=== PATIENT | female | born 1965 | race Caucasian/White ===

== ENCOUNTER → 2016-12-19 | Day surgery (SDC) | payer MEDICARE, MEDICAID ==
[~2016-12-19] VITALS: Ht 147.3 cm; Wt 39.5 kg
[~2016-12-19] MED LIST: BANZEL40 MG/1 ML PO; CELONTIN300 MG PO; CLARITIN10 MG PO; LEVOTHROID (S100 MCG PO; PEPCID20 MG PO; [UNRECOGNIZED DRUG - OTHER] PO
--- NOTE | ~2016-12-19 | OR ---
PATIENT'S NAME: ROMARIO MARTI [facility] AGE: 51 Y [address] ROOM: [place] [address] LOCATION: [facility] [place] DATE: 12/19/2016 OR/Procedure Report DISCHARGE DATE: FAMILY PHYSICIAN: CONRADO ORDOÑEZ PA-C ATTENDING PHYSICIAN: Fortino Corral V SURGEON: Fortino Corral MD SALES AUDIT CLERK: DATE OF PROCEDURE: 12/19/2016 PREOPERATIVE DIAGNOSIS: Displaced nasal fracture with a left-sided nasal obstruction. POSTOPERATIVE DIAGNOSIS: Displaced nasal fracture with a left-sided nasal obstruction. OPERATION PROCEDURE: Open reduction, nasal fracture. ANESTHESIA: General endotracheal anesthesia. ESTIMATED BLOOD LOSS: Minimal. COMPLICATIONS: None. BRIEF HISTORY: The patient is a 51-year-old female with history of cerebral palsy who is status post fall sustaining a displaced right to left nasal fracture. She had fracture of the nasal septum with severe obstruction of the left nasal vestibule. She was subsequently scheduled for closed reduction nasal fracture, possible open reduction. DESCRIPTION OF PROCEDURE: The patient was taken to the operating room, laid in supine position with general tracheal anesthesia. Nose was sprayed with Afrin solution. The patient was then prepped and draped in usual sterile fashion. The patient had severe deviation of her right nasal on right to left. Kevan elevator was placed in left nasal vestibule. The nasal fracture was reduced and noted to be in midline. The patient had severe deviation of the nasal septum, left to right. Septum was then infiltrated with 1% lidocaine with epinephrine solution. Left wolfgang-transfixed incision performed. Mucoperichondrial flap was elevated posteriorly. The cartilage is noted be fractured off the maxillary crest inferiorly as well as posteriorly along the vomer, perpendicular plate of the ethmoid. Mucoperiosteal flaps were elevated posteriorly. Quadrilateral cartilage from the perpendicular plate of the ethmoid cells of vomer. Portion of the perpendicular plate of the ethmoid and vomer removed using a straight biting forceps. A small posterior inferior aspect as well as anterior aspect of the quadrilateral cartilage was then removed in a piecemeal fashion, from the maxillary crest. The PATIENT'S NAME: ROMARIO MARTI [facility] AGE: 51 Y [address] ROOM: [place] [address] LOCATION: [facility] [place] ADMIT DATE: 12/19/2016 OR/Procedure Report DISCHARGE DATE: FAMILY PHYSICIAN: CONRADO ORDOÑEZ PA-C ATTENDING PHYSICIAN: Fotrino Corral V mucoperichondrium was placed back in position, nasal septum was noted be midline. Wolfgang-transfixed incision closed using interrupted 4-0 chromic suture. Mucoperichondrial flap was closed using 4-0 plain gut suture in a circular with the incision fashion. Septum was noted to be midline as was the nasal fracture. Inferior turbinates were outfractured, right and left respectively. The nose was suctioned, Bactroban coated nasal tampons were placed within the nasal vestibule, right and left respectively. A nasal drip pad was applied. The patient was aroused, extubated, and discharged from the operating room to the recovery room in satisfactory condition. MD MINERVA HOYOS/modl /[id number] CC: Belkis Jamison DO d: 12/19/16 1602 t: 12/26/16 0720, OPERATIVE SUMMARY
== END | disposition disaster alternative care site (69) ==
LOC: GPOC 12-15 11:00 → GSDC 06:30 → GPOC 11:00
PROC: 0NSB04Z Reposition Nasal Bone with Internal Fixation Device, Open Approach (ICD-10-PCS; principal; 2016-12-19)
DX: S02.2XXA Fracture of nasal bones, initial encounter for closed fracture (principal); J34.89 Other specified disorders of nose and nasal sinuses; Z88.8 Allergy status to other drugs, medicaments and biological substances; G40.409 Other generalized epilepsy and epileptic syndromes, not intractable, without status epilepticus; E03.9 Hypothyroidism, unspecified; M81.0 Age-related osteoporosis without current pathological fracture; W07.XXXA Fall from chair, initial encounter
CPT/HCPCS: A9270; J2405; J7030